=== PATIENT | female | born 1960 | race Caucasian/White ===

== ENCOUNTER 2021-11-17 18:52 | Emergency (ER) | payer MEDICAID, SELFPAY ==
[2021-11-17] VITALS (15 sets, daily range): BP systolic 109–140; BP diastolic 69–74; PULSE 78–95; RESP 13–24; TEMP 36.6; O2SAT 98–99
--- NOTE | ~2021-11-17 | CT_ITS ---
EXAMINATION: CTA brain carotid DATE: 11/17/2021 20:54 CDT INDICATION: CVA. TECHNIQUE: Computed tomographic angiography (CTA) of the head was performed without and with 100 mL O mnipaque-350 intravenous contrast. CTA of the neck was performed with intravenous contrast. The dose- length product was 822.45 mGy-cm. Maximum intensity projection and volume rendered 3D-reconstructions were created by the technologist on a separate workstation. COMPARISON: CT brain dated 11/17/2021. FINDINGS: HEAD CTA: The intracranial arteries are within normal limits without significant stenosis, occlusion or aneurysm. Vertebral arteries are codominant. NECK CTA: Lung apices are normal. Small subcentimeter hypodensities of the thyroid gland are present, likely benign. There is mild atherosclerotic change at the left carotid bifurcation without signific ant luminal narrowing. No significant stenosis, occlusion or dissection. Vertebral arteries are withi n normal limits. There is 0% stenosis of the proximal right internal carotid artery relative to normal distal artery l umen diameter (NASCET criteria). There is 0% stenosis of the proximal left internal carotid artery re lative to normal distal artery lumen diameter. IMPRESSION: 1: No significant vascular abnormality of the head or neck. No significant stenosis, occlusion, disse ction or aneurysm. Reviewed, dictated and finalized at location A. IMPRESSION: 1: No significant vascular abnormality of the head or neck. No significant sten osis, occlusion, dissection or aneurysm.
--- NOTE | ~2021-11-17 | XR_ITS ---
EXAMINATION: XR chest 1V portable 11/17/2021 19:28 INDICATION: Left-sided chest pain PROCEDURE: AP portable chest COMPARISON: No prior studies for comparison. FINDINGS: The lungs are clear. The cardiomediastinal silhouette is within normal limits. There are no pleural effusions. There is no pneumothorax suspected. There is dextroscoliosis of the thoracic spine. IMPRESSION: 1: NO ACUTE CARDIOPULMONARY DISEASE. Reviewed, dictated and finalized at location A.
--- NOTE | ~2021-11-17 | CT_ITS ---
EXAMINATION: CT BRAIN W/O DATE: 11/17/2021 19:16 INDICATION: Left-sided weakness. TECHNIQUE: Computed tomography (CT) of the head was performed without intravenous contrast. The dose- length product was 529.67 mGy-cm. Automated exposure control and iterative reconstruction technique w ere employed. COMPARISON: No prior studies for comparison. FINDINGS: Normal brain parenchymal volume for age. Normal mark-white differentiation. No acute intrac ranial hemorrhage, infarction, mass or mass effect. There are scattered mild periventricular and subc ortical white matter changes, most likely related to small vessel ischemic disease (microangiopathy). No ventriculomegaly or midline shift. Midline sagittal images demonstrate a normal corpus callosum, c raniovertebral junction and sella turcica. Basilar cisterns are patent. There is chronic left sphenoid sinus disease. No depressed skull fractures. IMPRESSION: 1. No acute intracranial abnormality. Reviewed, dictated and finalized at location A.
--- NOTE | 2021-11-17 19:05 | ECG_ITS ---
Measurements Intervals [place] Rate: 86 P: -5 DE: 148 QRS: 0 QRSD: 81 T: -5 QT: 384 QTc: 461 Interpretive Statements SINUS RHYTHM LOW QRS VOLTAGE IN PRECORDIAL LEADS [QRS DEFLECTION < 1.0 mV IN CHEST LEADS] POSSIBLE RIGHT VENTRICULAR CONDUCTION DELAY [RSR (QR) IN V1/V2] BORDERLINE ECG NO PREVIOUS ECG AVAILABLE FOR COMPARISON Electronically Signed On 11-18-2021 14:13:50 CDT by Aidan Rubin M.D.
[2021-11-17 19:20] LABS: Base Excess ABG 2.8 mmol/L (0-2); Carboxyhemoglobin 2.2 % (0-1.5); HCO3 ABG 25.8 mmol/L (23-29); Methemoglobin ABG 0.4 % (0-1.5); Oxygen Content ABG 15.8 %vol (16.0-22.0); Oxygen Saturation ABG 96.2 % (95-97); Oxyhemoglobin 93.7 % (94-100); PCO2 ABG 34.4 mmHg (35-45); PO2 ABG 80.3 mmHg (80-90); Reduced Hemoglobin 3.7 % (0-1.5); Total Hemoglobin 11.9 g/dL (12.0-18.0); pH ABG 7.49 (7.35-7.45)
--- NOTE | 2021-11-17 19:24 | PC.NURSE ---
Pt stable at this time, call placed to [facility] per pt and family request to go to [facility].
[2021-11-17 19:28] LABS: Basophils Absolute Auto 0.06 K/mm3 (0.00-0.10); Basophils Percent Auto 1.4 % (0.0-1.0); Eosinophils Absolute Auto 0.08 K/mm3 (0.02-0.50); Eosinophils Percent Auto 1.8 % (1.0-6.0); Hematocrit 31.3 % (35.0-49.0); Hemoglobin 11.1 g/dL (12.0-15.0); Immature Granulocyte Absolute 0.03 K/mm3 (0.00-0.00); Immature Granulocyte Percent A 0.7 % (0.0-0.0); Lymphocytes Percent Auto 20.3 % (18.0-42.0); Mean Corpuscular HGB Conc 35.5 g/dL (32.0-36.0); Mean Corpuscular Hemoglobin 32.7 pg (27.0-31.0); Mean Corpuscular Volume 92.3 fL (78.0-102.0); Mean Platelet Volume 8.2 fl (9.2-11.8); Monocytes Absolute Auto 0.57 K/mm3 (0.10-0.90); Monocytes Percent Auto 12.8 % (2.0-11.0); Neutrophils Absolute Auto 2.8 K/mm3 (1.7-7.2); Platelet Count Result 371 K/mm3 (150-420); Red Blood Count 3.39 M/mm3 (4.20-5.40); Red Cell Distribution Width 11.5 % (11.6-14.4); White Blood Count 4.4 K/mm3 (4.8-10.8)
[2021-11-17 19:30] LABS: Device ROOM AIR; Site Drawn RIGHT BRACHIAL
[2021-11-17 19:38] LABS: INR 1.1; Partial Thromboplastin Time 25.9 SEC (23.90-30.70); Prothrombin Time 11.9 Seconds (9.50-12.10)
--- NOTE | 2021-11-17 19:45 | PC.NURSE ---
Consent signed by pt and pts. brother for [facility] p informed about risk factors by Dr Lofton.
[2021-11-17 19:49] LABS: Alanine Aminotransferase 41 U/L (14-59); Albumin Level 3.7 g/dL (3.4-5.0); Alkaline Phosphatase 78 U/L (46-116); Anion Gap 7 mmol/L (8-16); Aspartate Amino Transferase 60 U/L (15-37); Bilirubin,Total 0.6 mg/dL (0.00-1.00); Blood Urea Nitrogen 10 mg/dL (7-18); Calcium 8.6 mg/dL (8.5-10.1); Carbon Dioxide 30 mmol/L (21-32); Chloride 84 mmol/L (98-108); Estimated CRCL calculation 49 ml/min; Estimated Glomerular Filt Rate 59; Glucose 102 mg/dL (70-99); Osmolality Calculated 251 mOsm/kg (285-295); Potassium 3.7 mmol/L (3.5-5.1); Sodium 121 mmol/L (136-145); Total Protein 6.8 g/dL (6.4-8.2); Troponin I 7.5 ng/L (0.00-60.4)
[2021-11-17 19:51] LABS: Ethanol < 3 mg/dL (0-6)
[2021-11-17] MEDS: SODIUM CHLORIDE 0.9% IV 1,000 ML 999 ML IV CONT (20:01)
--- NOTE | 2021-11-17 20:05 | ED.NEUROSD ---
HPI - Neuro Symptoms/Deficit General Chief Complaint: Suspected CVA Stated Complaint: weakness Time Seen by Provider: 11/17/21 18:53 Source: patient, family, EMS and RN notes reviewed Mode of arrival: EMS Limitations: no limitations History of Present Illness HPI Narrative: Sudden left facial droop + unable to move left upper or lower limbs. Some limited limb movements with EMS and in the ED. gradually less facial droop in the ED. Onset (ago): hour(s) (2) Last Observed Normal: 17:00 Timing confirmed by: family member Location: left face, left arm and left leg History of same: No Severity: moderate Quality: weak and improving Relieving factors: time and medication Exacerbating factors: none Context: sudden onset On Anticoagulants: No Associated symptoms: weakness Treatments Prior to Arrival: oxygen Related Data Home Medications Medication Instructions Recorded Confirmed venlafaxine 150 mg 150 mg PO DAILY 11/17/21 11/17/21 capsule,extended release 24 hr Allergies Allergy/AdvReac Type Severity Reaction Status Date / Time No Known Allergies Allergy Verified 11/17/21 19:15 Review of Systems Review of Systems: All systems reviewed & are unremarkable except as noted in HPI and below Constitutional: Constitutional: Reports no additional constitutional complaints and Reports other (left facial droop) Eyes: Eyes: Reports no additional eye complaints ENT: Reports system reviewed and no additional complaints, except as documented Cardiovascular: Cardiovascular: Reports no additional cardiovascular complaints Respiratory: Respiratory: Reports no additional respiratory complaints Gastrointestinal: Gastrointestinal: Reports no additional gastrointestinal complaints Genitourinary: Genitourinary: Reports no additional female genitourinary complaints Musculoskeletal: Musculoskeletal: Reports no additional musculoskeletal complaints, Reports muscle weakness and Reports numbness Comments: left upper and lower limb weakness Integumentary/Breasts: Skin/Breast: Reports system reviewed and no additional complaints, except as docu Neurologic: Reports system reviewed and no additional complaints, except as documented Psychiatric: Psychiatric: Reports no additional psychiatric complaints Endocrine: Endocrine: Reports no additional endocrine complaints Hematologic/Lymphatic: Hematologic/Lymphatic: Reports no additional hematologic/lymphatic complaints Allergic/Immunologic: Allergic/Immunologic: Reports no additional allergic/immunologic complaints [facility] Past Medical History Medical History (Updated 11/17/21 @ 20:44 by Corinna Lofton MD) CVA (cerebral vascular accident) Exam Const: General: healthy appearing, no acute distress and other (obvious left facial drooping) Nutritional Appearance: well nourished Orientation/consciousness: oriented to person, oriented to place, oriented to time and patient oriented x3 Limitations: no limitations HENMT: Head: normal to inspection Ears: external ears normal, TM's normal bilaterally and EAC's normal General nose exam: Normal external nose present and Normal nares present Face and sinus: normal facial exam and sinuses nontender Mouth: Yes Normal oral and palatal mucosa present and Yes moist mucous membranes Teeth and gingiva: dentition normal Throat: posterior oropharynx normal Eyes: Conjunctivae: conjunctivae normal Pupils: Equal, round and reactive pupils present EOM: EOMs intact bilaterally Neck: Neck: normal visual inspection, no lymphadenopathy and no meningeal signs Chest: Chest palpation & inspection: normal inspection of the chest Resp: Effort & Inspection: normal respiratory effort Auscultation: clear to auscultation bilaterally Cardio: Rate: regular rate Rhythm: regular rhythm GI: GI Palp: Yes Soft to palpation and No Tenderness to palpation present (GI) Auscultation: normal bowel sounds : General: Yes bladder normal to palpation and Ye
--- NOTE | 2021-11-17 20:09 | PC.NURSE ---
Josh called for transfer to [facility], awaiting bed placement at [facility] at this time.
--- NOTE | 2021-11-17 20:10 | PC.NURSE ---
Info and report given to transfer center, awaiting on bed assignment per transfer center RN. Pt has been accepted by Dr Alcantara, neuro at [facility] to send pt immediately and not wait for [facility] as per there order request. Paperwork signed for transfer via [facility] per MD request.
[2021-11-17 20:14] LABS: Add Urine Microscopic? YES; Bilirubin Urine Negative (Negative); Blood Urine 2+ (Negative); Color Urine Light Yellow (Yellow); Glucose Urine UA Negative (Negative); Ketones Urine Negative (Negative); Leukocyte Esterase Ur 1+ LEU/UL (Negative); Nitrate Urine Negative (Negative); Protein Urine Negative (Negative); Specific Grav Ur 1.015 (1.010-1.020); Urobilinogen Urine 0.2 mg/dL (0.2-1.0); pH Urine 5.5 (5.0-8.0)
[2021-11-17 20:20] LABS: Appearance Urine Cloudy (Clear); Bacteria Urine 4+ /hpf; RBC Urine 0-2 /hpf (0-2); Squamous Epithelial Cell Urine Few /hpf (Few); WBC Urine 16-20 /hpf (0-3)
[2021-11-17 20:21] LABS: Amphetamine Screen Urine Negative (Negative); Barbiturate Screen Urine Negative (Negative); Benzodiazepines Screen Urine Negative (Negative); Cannabinoid Screen Urine Positive (Negative); Cocaine Screen Urine Negative (Negative); Methadone Screen Urine Negative (Negative); Opiate Screen Urine Negative (Negative); Phencyclidine Screen Urine Negative (Negative)
[2021-11-17 20:27] LABS: SARS-CoV-2 Ag Negative (Negative)
--- NOTE | 2021-11-17 20:29 | PC.NURSE ---
[facility] here for pt transfer, still awaiting call back from [facility] for assignment at stroke center. Pt back from [facility], [facility].
--- NOTE | 2021-11-17 20:38 | PC.NURSE ---
Call back placed to [facility] to find out about transport, told by RN that she will call ICU for bed and will call back shortly c assignment. Report given to [facility] crew for pt transfer.
--- NOTE | 2021-11-17 20:53 | PC.NURSE ---
Call back from [facility], spoke to Deisi RN bed assignment received and pt loaded per [facility].
[2021-11-17] MEDS: SODIUM CHLORIDE 0.9% IV 1,000 ML 150 ML IV CONT (20:57)
--- NOTE | 2021-11-20 17:57 | PC.NURSE ---
final urine culture report shows greater than 100,000 cfu e. coli noted in specimen. per dr arellano pt needs bactrim ds bid x10 days. however pt was transferred to [facility], is currently still in pt status there. This RN spoke with Lynne VILLARREAL to advise of results and results were faxed to [phone].
== END 2021-11-17 21:05 | disposition short-term general hospital (02) ==
PROVIDERS: Emergency Provider Emergency Medicine; PCP Family Medicine
DX: I63.9 Cerebral infarction, unspecified (principal); Z20.822 Contact with and (suspected) exposure to COVID-19
CPT/HCPCS: 36415; 36600; 37195; 70450; 70496; 70498; 71045; 80053; 80307; 81001; 82375; 82805; 83050; 84484; 85025; 85610; 85730; 87077; 87086; 87088; 87186; 87426; 93005; 96361; 96374; 99285; C9803; J0696; J2997; J7030; Q9967

== ENCOUNTER 2022-02-08 13:37 | Emergency (ER) | payer OTHER, SELFPAY ==
--- NOTE | ~2022-02-08 | CT_ITS ---
EXAMINATION: CT brain wo con DATE: 02/08/2022 14:49 INDICATION: syncope . TECHNIQUE: Computed tomography (CT) of the head was performed without intravenous contrast. The mA wa s adjusted according to patient size. Iterative reconstruction technique was employed. The dose-lengt h product was 529.67 mGy-cm. COMPARISON: 11/17/2021 FINDINGS: No acute intracranial hemorrhage or extra-axial fluid collection. No hydrocephalus, mass, or herniation. No acute ischemic infarct. Unremarkable dural venous sinus attenuation. No acute osseous abnormality. Near complete opacification of the left sphenoid sinus, with surrounding sclerosis, middle left ethmo id air cell opacification the remaining aerated spaces are clear. Mild atrophy and chronic white matter change. Bilateral old basal ganglia lacunar infarcts. Atheroscl erotic intracranial calcification. IMPRESSION: No acute intracranial process. Chronic sphenoid sinusitis. Reviewed, dictated and finalized at location K.
--- NOTE | ~2022-02-08 | XR_ITS ---
EXAMINATION: XR chest 1V Exam Date/Time: 02/08/2022 14:30 CDT HISTORY: Syncope. Comparison: 11/17/2021. RESULT: Lines, tubes, and devices: None. Lungs and pleura: Mild senescent change. Cardiomediastinal silhouette: Stable. Other: No acute osseous or upper abdominal finding. IMPRESSION: No acute cardiopulmonary process. Reviewed, dictated and finalized at location K.
[2022-02-08 13:45] VITALS: PULSE 92
[2022-02-08 14:00] VITALS: BP 108/66; PULSE 87; RESP 16; O2SAT 99
--- NOTE | 2022-02-08 14:00 | ECG_ITS ---
Measurements Intervals [place] Rate: 83 P: 50 [place]: 160 QRS: 43 QRSD: 85 T: 54 QT: 377 QTc: 445 Interpretive Statements SINUS RHYTHM BASELINE ARTIFACT- I, II, III, AVR, AVL, AVF NORMAL ECG COMPARED TO ECG 11/17/2021 19:12:49 NO SIGNIFICANT CHANGES Electronically Signed On 02-08-2022 20:15:10 CDT by Canelo Garcia D.O.
[2022-02-08] MEDS: SODIUM CHLORIDE 0.9% IV 1,000 ML 999 ML IV CONT (14:10)
[2022-02-08 14:17] LABS: Basophils Absolute Auto 0.09 K/mm3 (0.00-0.10); Basophils Percent Auto 1.8 % (0.0-1.0); Eosinophils Absolute Auto 0.15 K/mm3 (0.02-0.50); Hematocrit 33.4 % (35.0-49.0); Hemoglobin 10.8 g/dL (12.0-15.0); Immature Granulocyte Absolute 0.01 K/mm3 (0.00-0.00); Immature Granulocyte Percent A 0.2 % (0.0-0.0); Lymphocytes Absolute Auto 1.14 K/mm3 (1.10-4.50); Lymphocytes Percent Auto 22.8 % (18.0-42.0); Mean Corpuscular HGB Conc 32.3 g/dL (32.0-36.0); Mean Platelet Volume 8.6 fl (9.2-11.8); Monocytes Absolute Auto 0.44 K/mm3 (0.10-0.90); Monocytes Percent Auto 8.8 % (2.0-11.0); Neutrophils Absolute Auto 3.2 K/mm3 (1.7-7.2); Neutrophils Percent Auto 63.4 % (50.0-70.0); Platelet Count Result 405 K/mm3 (150-420); Red Blood Count 3.48 M/mm3 (4.20-5.40); Red Cell Distribution Width 13.2 % (11.6-14.4)
[2022-02-08 14:18] VITALS: BP 111/70; PULSE 92; RESP 16; TEMP 36.8; O2SAT 99
[2022-02-08 14:30] VITALS: BP 115/70; PULSE 77; PULSE 78; RESP 16; O2SAT 98
[2022-02-08 14:31] LABS: INR 1.1; Partial Thromboplastin Time 24.2 SEC (23.90-30.70); Prothrombin Time 11.8 Seconds (9.50-12.10)
[2022-02-08 14:35] LABS: D Dimer 0.33 mg/L (0.19-0.50)
[2022-02-08 14:40] LABS: Alanine Aminotransferase 29 U/L (14-59); Albumin Level 3.9 g/dL (3.4-5.0); Alkaline Phosphatase 129 U/L (46-116); Anion Gap 8 mmol/L (8-16); Aspartate Amino Transferase 20 U/L (15-37); Bilirubin,Total 0.3 mg/dL (0.00-1.00); Blood Urea Nitrogen 17 mg/dL (7-18); Calcium 9.3 mg/dL (8.5-10.1); Carbon Dioxide 27 mmol/L (21-32); Chloride 104 mmol/L (98-108); Estimated CRCL calculation 32 ml/min; Estimated Glomerular Filt Rate 33; Glucose 101 mg/dL (70-99); Magnesium 1.5 mg/dL (1.8-2.4); NT Pro B Type Natriuretic Pept 216 pg/mL (0-125); Osmolality Calculated 289 mOsm/kg (285-295); Sodium 139 mmol/L (136-145); Total Protein 7.5 g/dL (6.4-8.2); Troponin I 4.1 ng/L (0.00-60.4)
[2022-02-08 14:41] LABS: Lactic Acid Reflex 1.1 mmol/L (0.4-2.0)
[2022-02-08 14:43] LABS: CRP < 0.5 mg/dL (0.0-0.9)
--- NOTE | 2022-02-08 15:16 | ED.SYNCOPE ---
HPI - Syncope General Chief Complaint: Syncope Stated Complaint: ambulance Time Seen by Provider: 02/08/22 13:41 Source: patient and family Mode of arrival: EMS Limitations: no limitations History of Present Illness HPI narrative: this is a 61-year-old female with a history of CVA with left-sided weakness and hypertension, apparently earlier today had a syncopal episode where she passed out no prodrome no seizure activity no loss of bowel or bladder function currently no headache no nausea vomiting no blurry vision, the patient is back to her baseline. There is no chest pain no shortness shortness of breath no fever chills no dysuria no flank pain no abdominal pain. complaint: loss of consciousness Onset (ago): hour(s) -: minutes(s) ( Proximally 1minute) Prodromal symptoms: none Context: at rest Injuries sustained associated with event: none Current symptoms: back to baseline Related Data Home Medications Medication Instructions Recorded Confirmed amlodipine 10 mg tablet 10 mg PO DAILY 02/08/22 02/08/22 aspirin 325 mg tablet 325 mg PO DAILY 02/08/22 02/08/22 atorvastatin 80 mg tablet 80 mg PO QHS 02/08/22 02/08/22 bupropion HCl 200 mg tablet,12 hr 200 mg PO BID 02/08/22 02/08/22 sustained-release escitalopram oxalate 10 mg tablet 10 mg PO DAILY 02/08/22 02/08/22 folic acid 1 mg tablet 1 mg PO DAILY 02/08/22 02/08/22 hydroxyzine pamoate 25 mg capsule 25 mg PO QHS PRN Anxiety 02/08/22 02/08/22 lisinopril 40 mg tablet 40 mg PO DAILY 02/08/22 02/08/22 Allergies Allergy/AdvReac Type Severity Reaction Status Date / Time No Known Allergies Allergy Verified 02/08/22 14:28 Review of Systems Review of Systems: All systems reviewed & are unremarkable except as noted in HPI and below PMFSH Past Medical History Medical History CVA (cerebral vascular accident) Exam Const: General: healthy appearing Limitations: no limitations HENMT: Head: normal to inspection Face/Nose/Sinus: Normal external nose present Face and sinus: normal facial exam Eyes: Conjunctivae: conjunctivae normal EOM: EOMs intact bilaterally Direct Ophthalmoscopy: no photophobia Neck: Neck: normal visual inspection, no lymphadenopathy and no meningeal signs Chest: Chest palpation & inspection: normal inspection of the chest Resp: Effort & Inspection: normal respiratory effort Auscultation: clear to auscultation bilaterally Cardio: Rate: regular rate Rhythm: regular rhythm GI: Auscultation: normal bowel sounds : General: Yes bladder normal to palpation Urinary Catheter: Urinary Catheter: patent and draining Back/Spine/Pelvis: Back: no CVA tenderness Skin: General skin exam: normal color Rashes: no rashes Neuro: General: patient oriented x3, moves all extremities, no meningeal signs and no focal motor deficits Extrem: General: normal to inspection and no clubbing, cyanosis or edema Psych: Mental Status: mental status grossly normal Affect: normal affect Course Course Emergency Course: Reassessment of patient has been back to baseline blood pressure stable at 1 and did receive IV fluids CT scan of the head and chest x-ray were reviewed with no acute abnormalities, patient lab work was reviewed with patient and family member. Vital Signs Vital signs: Vital Signs Pulse Rate 92 02/08/22 13:45 Temperature 36.8 C 02/08/22 14:18 Pulse Rate 92 02/08/22 14:18 Respiratory Rate 16 02/08/22 14:18 Blood Pressure 111/70 02/08/22 14:18 Pulse Oximetry 99 02/08/22 14:18 Oxygen Delivery Room Air 02/08/22 14:18 MDM - Syncope Lab Data Result diagrams: 02/08/22 14:11 02/08/22 14:11 Labs: Lab Results 02/08/22 02/08/22 02/08/22 Range/Units 14:11 14:11 14:11 WBC 5.0 (4.8-10.8) K/mm3 RBC 3.48 L (4.20-5.40) M/mm3 Hgb 10.8 L (12.0-15.0) g/dL Hct 33.4 L (35.0-49.0) % MCV 96.0 (78.
[2022-02-08 15:26] LABS: Bilirubin Urine Negative (Negative); Blood Urine 1+ (Negative); Glucose Urine UA Negative (Negative); Ketones Urine Negative (Negative); Leukocyte Esterase Ur 1+ LEU/UL (Negative); Nitrate Urine Positive (Negative); Protein Urine Negative (Negative); Specific Grav Ur 1.015 (1.010-1.020); Urobilinogen Urine 0.2 mg/dL (0.2-1.0)
[2022-02-08 15:30] VITALS: BP 116/65; PULSE 81; RESP 18; TEMP 36.2; O2SAT 99
[2022-02-08 15:33] LABS: Add Urine Microscopic? YES; Appearance Urine Cloudy (Clear); Color Urine Light Yellow (Yellow)
[2022-02-08 15:34] LABS: Bacteria Urine 4+ /hpf; Mucus Urine Heavy /lpf; Squamous Epithelial Cell Urine Many /hpf (Few); WBC Urine 16-20 /hpf (0-3)
== END 2022-02-08 15:35 | disposition home or self-care (01) ==
PROVIDERS: Emergency Provider Emergency Medicine
DX: R55 Syncope and collapse (principal)
CPT/HCPCS: 36415; 70450; 71045; 80053; 81001; 83605; 83735; 83880; 84484; 85025; 85380; 85610; 85730; 86140; 87077; 87086; 87088; 87186; 93005; 96360; 99284; J7030

== ENCOUNTER 2022-04-30 13:23 | Outpatient (RCR) | payer OTHER, SELFPAY ==
--- NOTE | 2022-04-30 13:50 | PTOPEVAL1 ---
Assessment and note entered by JT File, PT Evaluation Information Assessment Status Evaluation Diagnosis closed fracture of L humerus Onset 03/24/22 Subjective Information patient reports she fell and fractured her L shoulder when she tripped on a cord on the floor. she reports this was on 03/24/22. she reports she did not have surgery. she reports she has been in a sling since. she reports she is now ready to begin therapy to work on her rom of the L shoulder . she is allowed to take the arm out of the sling during the day to exercise, but is still to wear it at night or when out in public. she reports she has been using the arm trying to reach and move the arm. she reports she has pain in the L arm all the time. Reported Pain Level Pain Score 4: Self Report Assessment PT Clinical Summary mrs. chaudhry presents to skilled PT services for evaluation and treatment of L shoulder pain. she presents with weakness, decreased rom, and decreased functional reaching/lifting performance of the L UE following a fall and fracture of the L humerus. she would benefit from continued skilled PT intervention to improve her objective/ functional deficits and return to her prior level functional activity performance/quality of life. Plan of Care Interventions Electrical Stimulation,Hot Pack/Cold Pack,Manual Therapy,Neuro Re-education,Patient/Caregiver Educati,Therapeutic Activities,Therapeutic Exercise PT Services Indicated Yes Treatment Frequency and 3x weekly for 12 visits Duration These treatments will address the objective and functional deficits as defined above. The patient will be advanced safely and appropriately in order for the patient to progress towards his/her prior level of function. Additional exercises will be introduced and as well as a comprehensive home exercise program upon discharge, if needed, ?to ensure carryover of functional gains achieved in the clinic. This treatment plan has been reviewed and agreement upon by the patient.
--- NOTE | 2022-05-30 10:53 | PTOPPROGNS ---
Assessment and note entered by Kassy Cesar DPT Evaluation Information Assessment Status Re-evaluation Diagnosis closed fracture of L humerus Onset 03/24/22 Subjective Information Patient reports that her shoulder is doing well. She denies issues with ROM but reports strength continues to be an issue. Assessment PT Clinical Summary Patient is making good progress towards goals this date. She is demonstrating good improvement towards ROM goals and strength goals. She continues to lack L shoulder strength and wouldnt benefit from continued skilled PT address impairments and return to PLOF. Plan of Care Interventions Electrical Stimulation,Hot Pack/Cold Pack,Manual Therapy,Neuro Re-education,Patient/Caregiver Educati,Therapeutic Activities,Therapeutic Exercise PT Services Indicated Yes Treatment Frequency and continue per POC Duration These treatments will address the objective and functional deficits as defined above. The patient will be advanced safely and appropriately in order for the patient to progress towards his/her prior level of function. Additional exercises will be introduced and as well as a comprehensive home exercise program upon discharge, if needed, ?to ensure carryover of functional gains achieved in the clinic. This treatment plan has been reviewed and agreement upon by the patient.
--- NOTE | 2022-06-06 08:41 | PTOPEVAL1 ---
Assessment and note entered by Kassy Cesar DPT Evaluation Information Assessment Status Re-evaluation Diagnosis closed fracture of L humerus Onset 03/24/22 Subjective Information Patient reports that she is feeling good and has had no pain in the last few weeks. She reports she can do everything she needs to do at home with no limitations. She also reports she is compliant with HEP Reported Pain Level Pain Score 0: Self Report Assessment PT Clinical Summary Patient made great progress in skilled PT. She has demonstrated significant improvements in L shoulder ROM and L UE strength. She reports she has been able to return to all house hold and self care tasks with no increase in shoulder pain. She report independence with HEP and is appropriate for DC at this time. Plan of Care PT Services Indicated No Treatment Frequency and DC to independent HEP Duration These treatments will address the objective and functional deficits as defined above. The patient will be advanced safely and appropriately in order for the patient to progress towards his/her prior level of function. Additional exercises will be introduced and as well as a comprehensive home exercise program upon discharge, if needed, ?to ensure carryover of functional gains achieved in the clinic. This treatment plan has been reviewed and agreement upon by the patient.
== END 2022-06-06 09:56 | disposition home or self-care (01) ==
LOC: CHSPT 13:23
DX: S42.302D Unspecified fracture of shaft of humerus, left arm, subsequent encounter for fracture with routine healing (principal)
CPT/HCPCS: 97014; 97110; 97140; 97161; G0283